=== PATIENT | male | born 1995 ===

== ENCOUNTER 2017-08-04 05:07 | Inpatient (IN) | payer OTHER ==
[2017-08-04] MEDS ORDERED: Sodium Chloride 0.9% 1,000 ML IV ONE ×2 (05:40→19:05)
--- NOTE | 2017-08-04 05:40 | C.PDOC ---
History Of Present Illness 21 year old male presents to the ED with caregiver for evaluation of right upper quadrant pain which began around 4 days ago. Patient also reports subjective fever. Patient denies nausea, vomiting, diarrhea, or association of symptoms with eating. Time Seen by Provider: 08/04/17 05:28 Chief Complaint (Nursing): Abdominal Pain History Per: Patient History/Exam Limitations: no limitations Onset/Duration Of Symptoms: Days (4) Current Symptoms Are (Timing): Still Present Location Of Pain/Discomfort: RUQ Quality Of Discomfort: "Pain" Associated Symptoms: Fever (subjective ). denies: Nausea, Vomiting, Diarrhea Additional History Per: Patient Past Medical History Reviewed: Historical Data, Nursing Documentation, Vital Signs Vital Signs: Last Vital Signs Temp 96 F L 08/04/17 05:15 Pulse 90 08/04/17 05:15 Resp 20 08/04/17 05:15 BP 136/75 08/04/17 05:15 Pulse Ox 100 08/04/17 05:47 - Medical History PMH: No Chronic Diseases Surgical History: No Surg Hx Family History: States: Unknown Family Hx - Social History Hx Alcohol Use: Yes Hx Substance Use: No - Immunization History Hx Tetanus Toxoid Vaccination: No Hx Influenza Vaccination: No Hx Pneumococcal Vaccination: No Review Of Systems Constitutional: Positive for: Fever Gastrointestinal: Positive for: Abdominal Pain (right upper quadrant ). Negative for: Nausea, Vomiting, Diarrhea Physical Exam - Physical Exam Appears: Non-toxic, No Acute Distress Skin: Normal Color, Warm, Dry Head: Atraumatic, Normacephalic Eye(s): bilateral: Normal Inspection Oral Mucosa: Moist Neck: Supple Chest: Symmetrical, No Deformity, No Tenderness Cardiovascular: Rhythm Regular, No Murmur Respiratory: Normal Breath Sounds, No Rales, No Rhonchi, No Wheezing Gastrointestinal/Abdominal: Soft, Tenderness (to RUQ and RLQ on palpation ), No Guarding, No Rebound Extremity: Normal ROM, Capillary Refill (less than 2 seconds ) Neurological/Psych: Oriented x3, Normal Speech, Normal Cognition Gait: Steady ED Course And Treatment - Laboratory Results Result Diagrams: 08/04/17 06:00 O2 Sat by Pulse Oximetry: 100 (on RA) Pulse Ox Interpretation: Normal Progress Note: Labs, CT A/P, CXR, US Abdomen ordered and reviewed. Morphine IVP , Zofran IVP, and IV Fluids administered. Progress - Data Reviewed Data Reviewed: Lab, Diagnostic imaging Disposition - Disposition Disposition Time: 07:00 Condition: STABLE Forms: [facility] (Lao) - Clinical Impression Clinical Impression: Abdominal pain - Scribe Statement The provider has reviewed the documentation as recorded by the Scribe (Liberty Pierre) Provider Attestation: All medical record entries made by the Scribe were at my direction and personally dictated by me. I have reviewed the chart and agree that the record accurately reflects my personal performance of the history, physical exam, medical decision making, and the department course for this patient. I have also personally directed, reviewed, and agree with the discharge instructions and disposition. Physician Patient Turnover Patient Signed Over To: Brian Conway DO Handoff Comments: CYRUS WARD, CT, CICI
[2017-08-04] MEDS ORDERED: Sodium Chloride 0.9% 1,000 ML ONE ×2 (06:02→11:44)
[2017-08-04 06:03] LABS: BASO % 0.3 % (0.0-2.0); EOS # 0.1 K/uL (0.0-0.7); EOS % 0.8 % (0.0-4.0); HEMATOCRIT 46.4 % (35.0-51.0); LYMPH # 2.2 K/uL (1.0-4.3); LYMPH % 14.2 % (20.0-40.0); MEAN CELL VOLUME 87.4 fL (80.0-94.0); MEAN CORPUSCULAR HEMOGLOBIN 30.5 pg (27.0-31.0); MEAN CORPUSCULAR HGB CONC 34.8 g/dL (33.0-37.0); MEAN PLATELET VOLUME 9.1 fL (7.2-11.7); MONO # 0.9 K/uL (0.0-0.8); NRBC % 0.1 % (0.0-2.0); RED CELL DISTRIBUTION WIDTH 13.9 % (11.5-14.5); WHITE BLOOD COUNT 15.4 K/uL (4.8-10.8)
[2017-08-04 06:04] LABS: RBC URINE 1 /hpf (0-3); URINE BILIRUBIN NEGATIVE (NEGATIVE); URINE BLOOD NEGATIVE (NEGATIVE); URINE COLOR Yellow (YELLOW); URINE GLUCOSE (UA) NORMAL (Normal); URINE KETONE TRACE mg/dL (NEGATIVE); URINE LEUKOCYTE ESTERASE NEG Leu/uL (Negative); URINE PROTEIN NEGATIVE (NEGATIVE); WBC URINE < 1 /hpf (0-5)
[2017-08-04 06:40] LABS: CHLORIDE 101 mmol/L (98-107); SODIUM 137 mmol/L (132-148)
[2017-08-04 06:43] LABS: ALB/GLOB RATIO 1.2 (1.0-2.1); ALKALINE PHOSPHATASE 59 U/L (38-126); AST/SGOT 48 U/L (17-59); BILIRUBIN,TOTAL 1.7 mg/dL (0.2-1.3); BLOOD UREA NITROGEN 15 mg/dL (9-20); CARBON DIOXIDE 22 mmol/L (22-30); GFR AFRICAN-AMERICAN > 60; TOTAL PROTEIN 9.3 g/dL (6.3-8.3)
[2017-08-04 06:44] LABS: ALT/SGPT 21 U/L (21-72); CALCIUM 9.6 mg/dl (8.6-10.4); GLUCOSE,RANDOM 87 mg/dL (75-110)
[2017-08-04] MEDS ORDERED: Iodixanol 320 MG/ML 100 ML BOTTLE IV ONE (06:45)
[2017-08-04 07:00] LABS: POTASSIUM 5.4 mmol/L (3.6-5.2)
--- NOTE | 2017-08-04 09:10 | CT ---
PROCEDURE: CT Abdomen and Pelvis with contrast HISTORY: abd pain COMPARISON: None. TECHNIQUE: Contrast dose: 100 mL Visipaque 320. Axial and reformatted coronal and sagittal CT images of the abdomen and pelvis were obtained after IV contrast administration. Radiation dose: Total exam DLP = 305.5 mGy-cm. This CT exam was performed using one or more of the following dose reduction techniques: Automated exposure control, adjustment of the mA and/or kV according to patient size, and/or use of iterative reconstruction technique. FINDINGS: LOWER THORAX: Unremarkable. LIVER: Unremarkable. No gross lesion or ductal dilatation. GALLBLADDER AND BILE DUCTS: Unremarkable. PANCREAS: Unremarkable. No gross lesion or ductal dilatation. SPLEEN: Unremarkable. ADRENALS: Unremarkable. No mass. KIDNEYS AND URETERS: Unremarkable. No hydronephrosis. No solid mass. VASCULATURE: Unremarkable. No aortic aneurysm. BOWEL: Unremarkable. No obstruction. No gross mural thickening. APPENDIX: The appendix is enlarged surrounding with inflammatory changes measures up to 14 millimeter in the transverse diameter. Findings consistent with acute appendicitis. PERITONEUM: Unremarkable. No free fluid. No free air. LYMPH NODES: Unremarkable. No enlarged lymph nodes. BLADDER: Unremarkable. REPRODUCTIVE: Unremarkable. BONES: No acute fracture. OTHER FINDINGS: None. IMPRESSION: Findings consistent with acute appendicitis. No evidence of abscess formation. No evidence of other acute pathology in the abdomen and pelvis.
[2017-08-04] MEDS ORDERED: Piperacillin/Tazobact 3.375 GM in Sodium Chloride 100 ML IVPB STA (09:25)
--- NOTE | 2017-08-04 09:35 | US ---
HISTORY: abd pain COMPARISON: None. TECHNIQUE: Sonographic evaluation of the right upper quadrant of the abdomen. FINDINGS: LIVER: Measures 16.5 cm in length. Normal echogenicity of the liver parenchyma. No mass. No intrahepatic bile duct dilatation. GALLBLADDER: Unremarkable. No gallstones. COMMON BILE DUCT: Measures 3.3 mm. No stones. No dilatation. PANCREAS: Pancreas completely obscured by overlying bowel or stomach gas. . RIGHT KIDNEY: Measures 12.1 cm in length. Normal echogenicity. No calculus, mass, or hydronephrosis. AORTA: No aneurysmal dilatation. IVC: Unremarkable. OTHER FINDINGS: None . IMPRESSION: The pancreas is completely obscured by overlying bowel or stomach gas with remainder of the right upper quadrant examination unremarkable appearing.
[2017-08-04] MEDS ORDERED: Piperacillin/Tazobact 3.375 gm 100 ML IVPB ONE (09:44)
[2017-08-04 10:22] LABS: INR 1.1
--- NOTE | 2017-08-04 11:06 | CP.PCM.HP ---
History of Present Illness - History of Present Illness History of Present Illness: Surgery History and Physical for Dr. Cazares CC: Abdominal pain HPI: 21M presents to the emergency room with 5 day history of right upper quadrant pain that has gotten worse in the last 6 hours. Nothing makes the pain better. However, sudden movements, deep inspiration, coughing, and sitting up. makes the pain worse. The pain radiates form the RUQ to the RLQ. Denies any radiation to the back. The pain has been constant since Monday. The patient states he is "a little bit" hungry. Patient is complaining of subjective fever and chills. Patient denies any nausea, vomiting, or diarrhea. ROS: per HPI PMH: None PSH: Nasal Surgery 6-8 months ago FH: None SH: Smokes 1 pack per week for the past 3 years. Denies alcohol use and illicit drug use Medications: Afrin, Benadryl Allergies: Naproxen (anaphylaxis), Sulfa Present on Admission - Present on Admission Any Indicators Present on Admission: No History of DVT/PE: No History of Uncontrolled Diabetes: No Urinary Catheter: No Decubitus Ulcer Present: No History Surgical Site Infection Following: None Review of Systems - Review of Systems All systems: reviewed and no additional remarkable complaints except (as per HPI ) - Constitutional Constitutional: As Per HPI Past Patient History - Infectious Disease Hx of Infectious Diseases: None - Past Social History Smoking Status: Light Smoker < 10 Cigarettes Daily - PSYCHIATRIC Hx Substance Use: No - SURGICAL HISTORY Hx Surgeries: Yes Other/Comment: nasal surgery - ANESTHESIA Hx Anesthesia: Yes Hx Anesthesia Reactions: No Meds Allergies/Adverse Reactions: Allergies Allergy/AdvReac Type Severity Reaction Status Date / Time naproxen Allergy ANAPHYLAXIS Verified 08/04/17 11:08 Sulfa (Sulfonamide Allergy ANAPHYLAXIS Verified 08/04/17 11:08 Antibiotics) Physical Exam - Constitutional Appears: Well, Non-toxic, No Acute Distress - Head Exam Head Exam: ATRAUMATIC, NORMAL INSPECTION, NORMOCEPHALIC - Eye Exam Eye Exam: EOMI - ENT Exam ENT Exam: Mucous Membranes Moist - Respiratory Exam Respiratory Exam: Clear to Auscultation Bilateral, NORMAL BREATHING PATTERN - Cardiovascular Exam Cardiovascular Exam: REGULAR RHYTHM - GI/Abdominal Exam GI & Abdominal Exam: Tenderness (Tenderness to light palpation in RUQ and RLQ. Positive heel strike. Positive Rebound. ). absent: Distended, Soft - Extremities Exam Extremities exam: Negative for: joint swelling, tenderness - Back Exam Back exam: absent: CVA tenderness (L), CVA tenderness (R) - Neurological Exam Neurological exam: Alert, Oriented x3 - Psychiatric Exam Psychiatric exam: Normal Affect, Normal Mood - Skin Skin Exam: Dry, Intact, Normal Color, Warm Results - Vital Signs Recent Vital Signs: Last Vital Signs Temp 99.7 F H 08/04/17 10:15 Pulse 102 H 08/04/17 10:15 Resp 16 08/04/17 10:15 BP 134/84 08/04/17 10:15 Pulse Ox 99 08/04/17 10:15 - Labs Result Diagrams: 08/04/17 06:00 08/04/17 06:00 Labs: Laboratory Results - last 24 hr 08/04/17 08/04/17 08/04/17 05:59 06:00 06:00 WBC 15.4 H RBC 5.31 Hgb 16.2 Hct 46.4 MCV 87.4 MCH 30.5 MCHC 34.8 RDW 13.9 Plt Count 208 MPV 9.1 Neut % (Auto) 78.7 H Lymph % (Auto) 14.2 L [place] % (Auto) 6.0 Eos % (Auto) 0.8 Baso % (Auto) 0.3 Neut # 12.2 H Lymph # 2.2 [place] # 0.9 H Eos # 0.1 Baso # 0.0 PT INR APTT Sodium 137 Potassium 5.4 H Chloride 101 Carbon Dioxide 22 Anion Gap 19 BUN 15 Creatinine 0.7 L Est GFR ( Amer) > 60 Est GFR (Non-Af Amer) > 60 Random Glucose 87 Calcium 9.6 Total Bilirubin 1.7 H AST 48 ALT 21 Alkaline Phosphatase 59 Total Protein 9.3 H Albumin 5.1 H Globulin 4.2 H Albumin/Globulin Ratio 1.2 Lipase 84 Urine Color Yellow Urine Clarity Clear Urine pH 7.0 Ur Specific [place] 1.016 Urine Protein Negative Urine Glucose (UA) Normal Urine Ketones Trace Urine Blood Negative Urine Nitrate Negative Urine Bilirubin Negative Urine Urobilinogen 2.0 Ur Leukocyte Esterase Neg Urine WBC (Auto) < 1 Urine RBC (Auto) 1 Blood Type 08/04/17 08/04/17 10:07 10:07 WBC RBC Hgb Hct MCV MCH MCHC RDW Plt Count MPV Neut % (Auto) Lymph % (Auto) [place] % (Auto) Eos % (Auto) Baso % (Auto) Neut # Lymph # [place] # Eos # Baso # PT 12.6 H INR 1.1 APTT 28 Sodium Potassium Chloride Carbon Dioxide Anion Gap BUN Creatinine Est GFR ( Amer) Est GFR (Non-Af Amer) Random Glucose Calcium Total Bilirubin AST ALT Alkaline Phosphatase Total Protein Albumin Globulin Albumin/Globulin Ratio Lipase Urine Color Urine Clarity Urine pH Ur Specific [place] Urine Protein Urine Glucose (UA) Urine Ketones Urine Blood Urine Nitrate Urine Bilirubin Urine Urobilinogen Ur Leukocyte Esterase Urine WBC (Auto) Urine RBC (Auto) Blood Type A POSITIVE Assessment & Plan - Assessment and Plan (Free Text) Assessment: 21M w/ acute appendicitis Plan: * OR today * Pain control * NPO * Discussed with Dr. Sage Nieto PGY-1
[2017-08-04] MEDS: Sodium Chloride 0.9% 1,000 ML IV SCH ×2 (11:17→21:40)
[2017-08-04] MEDS: Piperacill/Tazo 3.375gm in Dex 3.375 GM/50 ML BAG IVPB SCH ×2 (11:18→17:56)
[2017-08-04] MEDS ORDERED: HYDROmorphone 0.5 mg/0.5 ml ISec IVP PRN (17:36)
[2017-08-04] MEDS ORDERED: Lactated Ringer's 1,000 ML IV ONE (17:42)
[2017-08-04] MEDS ORDERED: Neostigmine Methylsulfate 3mg/3ml Syringe IV ONE ×2 (18:35→18:36)
--- NOTE | 2017-08-04 18:59 | PCM.SURG1 ---
Surgeon's Initial Post Op Note - Surgeon's Notes Surgeon: Sage Religion Professor: Ebenezer PGY2, Emilia PGY1 Type of Anesthesia: General Endo Pre-Operative Diagnosis: Acute Appendicitis Operative Findings: Inflamed Appendix Post-Operative Diagnosis: Acute Appendicitis Operation Performed: Laparoscopic Appendectomy Specimen/Specimens Removed: Appendix Estimated Blood Loss: EBL {In ML}: 5 Post-Op Condition: Good Date of Surgery/Procedure: 08/04/17 Time of Surgery/Procedure: 18:59
[2017-08-04] MEDS: Oxycodone/Acetaminophen 5/325 mg Tab PO PRN (22:26)
[2017-08-05] MEDS: Piperacill/Tazo 3.375gm in Dex 3.375 GM/50 ML BAG IVPB SCH ×2 (00:08→05:46)
[2017-08-05 00:26] VITALS: RESP 20
[2017-08-05 07:13] LABS: BASO % 0.5 % (0.0-2.0); EOS % 0.5 % (0.0-4.0); HEMATOCRIT 41.4 % (35.0-51.0); LYMPH # 1.6 K/uL (1.0-4.3); LYMPH % 21.9 % (20.0-40.0); MEAN CELL VOLUME 88.4 fL (80.0-94.0); MEAN CORPUSCULAR HEMOGLOBIN 30.8 pg (27.0-31.0); MEAN CORPUSCULAR HGB CONC 34.8 g/dL (33.0-37.0); MONO # 0.7 K/uL (0.0-0.8); MONO % 9.2 % (0.0-10.0); RED CELL DISTRIBUTION WIDTH 14.1 % (11.5-14.5)
[2017-08-05 07:18] LABS: WHITE BLOOD COUNT 7.5 K/uL (4.8-10.8)
[2017-08-05 08:00] LABS: CHLORIDE 101 mmol/L (98-107); POTASSIUM 3.9 mmol/L (3.6-5.2); SODIUM 134 mmol/L (132-148)
[2017-08-05 08:03] LABS: BLOOD UREA NITROGEN 7 mg/dL (9-20); CARBON DIOXIDE 24 mmol/L (22-30); GFR AFRICAN-AMERICAN > 60
[2017-08-05 08:04] LABS: CALCIUM 8.9 mg/dl (8.6-10.4); GLUCOSE,RANDOM 98 mg/dL (75-110)
[2017-08-05] MEDS: Sodium Chloride 0.9% 1,000 ML IV SCH (08:56)
[2017-08-05] MEDS: Oxycodone/Acetaminophen 5/325 mg Tab PO PRN (09:08)
--- NOTE | 2017-08-05 11:59 | CP.PCM.DIS ---
Provider - Provider Date of Admission: 08/04/17 10:52 Attending physician: Maribel Cazares MD Time Spent in preparation of Discharge (in minutes): 30 Diagnosis - Discharge Diagnosis (1) Appendicitis Status: Acute Hospital Course - Lab Results Lab Results: Most Recent Lab Values WBC 7.5 K/uL (4.8-10.8) D 08/05/17 07:04 RBC 4.69 Mil/uL (4.40-5.90) 08/05/17 07:04 Hgb 14.4 g/dL (12.0-18.0) 08/05/17 07:04 Hct 41.4 % (35.0-51.0) 08/05/17 07:04 MCV 88.4 fL (80.0-94.0) 08/05/17 07:04 MCH 30.8 pg (27.0-31.0) 08/05/17 07:04 MCHC 34.8 g/dL (33.0-37.0) 08/05/17 07:04 RDW 14.1 % (11.5-14.5) 08/05/17 07:04 Plt Count 219 K/uL (130-400) 08/05/17 07:04 MPV 9.0 fL (7.2-11.7) 08/05/17 07:04 Neut % (Auto) 67.9 % (50.0-75.0) 08/05/17 07:04 Lymph % (Auto) 21.9 % (20.0-40.0) 08/05/17 07:04 [place] % (Auto) 9.2 % (0.0-10.0) 08/05/17 07:04 Eos % (Auto) 0.5 % (0.0-4.0) 08/05/17 07:04 Baso % (Auto) 0.5 % (0.0-2.0) 08/05/17 07:04 Neut # 5.1 K/uL (1.8-7.0) 08/05/17 07:04 Lymph # 1.6 K/uL (1.0-4.3) 08/05/17 07:04 [place] # 0.7 K/uL (0.0-0.8) 08/05/17 07:04 Eos # 0.0 K/uL (0.0-0.7) 08/05/17 07:04 Baso # 0.0 K/uL (0.0-0.2) 08/05/17 07:04 PT 12.6 SECONDS (9.7-12.2) H 08/04/17 10:07 INR 1.1 08/04/17 10:07 APTT 28 SECONDS (21-34) 08/04/17 10:07 Sodium 134 mmol/L (132-148) 08/05/17 07:04 Potassium 3.9 mmol/L (3.6-5.2) 08/05/17 07:04 Chloride 101 mmol/L (98-107) 08/05/17 07:04 Carbon Dioxide 24 mmol/L (22-30) 08/05/17 07:04 Anion Gap 13 (10-20) 08/05/17 07:04 BUN 7 mg/dL (9-20) L 08/05/17 07:04 Creatinine 0.7 mg/dL (0.8-1.5) L 08/05/17 07:04 Est GFR ( Amer) > 60 08/05/17 07:04 Est GFR (Non-Af Amer) > 60 08/05/17 07:04 Random Glucose 98 mg/dL (75-110) 08/05/17 07:04 Calcium 8.9 mg/dl (8.6-10.4) 08/05/17 07:04 Total Bilirubin 1.7 mg/dL (0.2-1.3) H 08/04/17 06:00 AST 48 U/L (17-59) 08/04/17 06:00 ALT 21 U/L (21-72) 08/04/17 06:00 Alkaline Phosphatase 59 U/L (38-126) 08/04/17 06:00 Total Protein 9.3 g/dL (6.3-8.3) H 08/04/17 06:00 Albumin 5.1 g/dL (3.5-5.0) H 08/04/17 06:00 Globulin 4.2 gm/dL (2.2-3.9) H 08/04/17 06:00 Albumin/Globulin Ratio 1.2 (1.0-2.1) 08/04/17 06:00 Lipase 84 U/L (23-300) 08/04/17 06:00 Urine Color Yellow (YELLOW) 08/04/17 05:59 Urine Clarity Clear (Clear) 08/04/17 05:59 Urine pH 7.0 (5.0-8.0) 08/04/17 05:59 Ur Specific [place] 1.016 (1.003-1.030) 08/04/17 05:59 Urine Protein Negative mg/dL (NEGATIVE) 08/04/17 05:59 Urine Glucose (UA) Normal mg/dL (Normal) 08/04/17 05:59 Urine Ketones Trace mg/dL (NEGATIVE) 08/04/17 05:59 Urine Blood Negative (NEGATIVE) 08/04/17 05:59 Urine Nitrate Negative (NEGATIVE) 08/04/17 05:59 Urine Bilirubin Negative (NEGATIVE) 08/04/17 05:59 Urine Urobilinogen 2.0 mg/dL (0.2-1.0) 08/04/17 05:59 Ur Leukocyte Esterase Neg Efren/uL (Negative) 08/04/17 05:59 Urine WBC (Auto) < 1 /hpf (0-5) 08/04/17 05:59 Urine RBC (Auto) 1 /hpf (0-3) 08/04/17 05:59 Blood Type A POSITIVE 08/04/17 10:07 Antibody Screen Negative 08/04/17 10:07 - Hospital Course Hospital Course: 21M w. no PMH presented to ED w. abd pain. Was found to have acute appendicitis , underwent laparoscopic appendectomy. Post-operatively pt did well. He is tolerating diet, no N/V. Pain controlled. He is ambulating, and voiding w. out issue. Pt is clear for D/C from surgical standpoint. Discharge Exam - Head Exam Head Exam: ATRAUMATIC, NORMAL INSPECTION, NORMOCEPHALIC - Eye Exam Eye Exam: EOMI - ENT Exam ENT Exam: Mucous Membranes Moist, Normal External Ear Exam - Neck Exam Neck exam: Full Rom - Respiratory Exam Respiratory Exam: NORMAL BREATHING PATTERN. absent: Accessory Muscle Use, Respiratory Distress - GI/Abdominal Exam GI & Abdominal Exam: Soft, Tenderness (jacques-incisional ). absent: Distended, Firm, Guarding, Rebound, Rigid - Neurological Exam Neurological exam: Alert, Oriented x3 - Psychiatric Exam Psychiatric exam: Normal Affect, Normal Mood - Skin Skin Exam: Dry, Warm Discharge Plan - Follow Up Plan Condition: STABLE Disposition: HOME/ ROUTINE Patient education suggested?: Yes Instructions: Laparoscopic Appendectomy (DC), Care For Your Stitches (DC) Additional Instructions: Activity as tolerated. No heavy lifting >20lbs for 4 weeks. Take pain meds as instructed. Follow up segundo Cazares in 1-2 weeks. Return to ED if symptoms worsen. Referrals: Maribel Cazares MD [Staff Provider] -
[2017-08-05] MEDS: Pneumococcal 23-Valent Vaccine IM ONE ×2 (13:23→13:33)
[2017-08-05] MEDS ORDERED: Influenza Vaccine 60 mcg/0.5 mL SYR (4YR UP) IM ONE (13:30)
[2017-08-05 15:49] VITALS: BP 102/62; PULSE 59; TEMP 98.4; O2SAT 99
--- NOTE | 2017-08-05 20:13 | OP ---
PROCEDURE DATE: 08/04/2017 PREOPERATIVE DIAGNOSIS: Acute appendicitis. POSTOPERATIVE DIAGNOSIS: Acute appendicitis. PROCEDURE: Laparoscopic appendectomy. SURGEON: Maribel Cazares MD. E LEARNING SPECIALIST: Dr. Taylor. TYPE OF ANESTHESIA: General. DESCRIPTION OF PROCEDURE: With the patient in the supine position under adequate general anesthesia, the abdomen was prepped and draped in the usual sterile manner. Veress needle puncture was performed at the umbilicus with insufflation to 15 cm of water pressure of CO2, and under direct vision 5 mm and 12 mm trocars were inserted in the left lower quadrant. The cecum was identified and was slightly high riding at the level of the pelvic brim. The appendix itself was noted to pass along the right gutter up cephalad to the lower edge of the liver. The base of the appendix was well preserved; however, the distal portion of the appendix was noted to be acutely inflamed. The appendix was gently grasped and serially delivered downward into view. The base of the appendix was dissected and divided using an Endo MAGDALENA stapler and the mesoappendix as well as some retroperitoneal attachments were then divided using the LigaSure. The operative site was examined for hemostasis and the appendix was placed in a specimen retrieval bag and removed via the 12 mm port site. The pneumoperitoneum was released and the trocars were removed. The umbilical and 12 mm port sites were closed with [id number] fascial sutures of 0-Vicryl. All incisions were closed with 4-0 Monocryl subcuticular sutures and Steri-Strips. Dry sterile dressings were applied. The patient tolerated the procedure well and transferred to recovery room in stable condition. Estimated blood loss for the procedure was 10 mL. Maribel Cazares MD
[2017-08-07] MEDS ORDERED: Influenza Vaccine 60 mcg/0.5 mL SYR (4YR UP) IM ONE (10:00)
[2017-08-07] MEDS ORDERED: Pneumococcal 23-Valent Vaccine IM ONE (10:00)
== END 2017-08-05 15:30 | disposition home or self-care (01) | DRG 883 ==
LOC: C.ER 05:07 → C.9E 10:52 → C.3T 11:18
PROVIDERS: ADMIT Specialist; ATTEND Specialist
PROC: 0DTJ4ZZ Resection of Appendix, Percutaneous Endoscopic Approach (ICD-10-PCS; principal; 2017-08-04 17:42)
DX: K35.80 Unspecified acute appendicitis (principal); F17.210 Nicotine dependence, cigarettes, uncomplicated

== ENCOUNTER 2017-10-22 22:30 | Emergency (ER) | payer OTHER ==
[2017-10-22 22:42] VITALS: BP 131/84; PULSE 93; RESP 20; TEMP 97.6; O2SAT 100
--- NOTE | 2017-10-22 23:30 | C.PDOC ---
History Of Present Illness Myron Hopkins is a 21 year old male, with no past medical history, who presents to the emergency department complaining of nasal congestion. Patient [place], but 'did not finish the treatment'. Patient states he is supposed to take medications ( names unknown) but cannot fill them because [place] from [place]. He denies any other medical complaints. PMD: None provided. Time Seen by Provider: 10/22/17 22:52 Chief Complaint (Nursing): ENT Problem History Per: Patient History/Exam Limitations: None Onset/Duration Of Symptoms: Days (x8 months) Current Symptoms Are (Timing): Still Present Past Medical History Reviewed: Historical Data, Nursing Documentation, Vital Signs Vital Signs: Last Vital Signs Temp 97.6 F 10/22/17 22:39 Pulse 93 H 10/22/17 22:39 Resp 20 10/22/17 23:39 BP 131/84 10/22/17 22:39 Pulse Ox 100 10/25/17 12:20 - Medical History PMH: No Chronic Diseases Surgical History: Appendectomy - [facility] Procedures RESECTION OF APPENDIX, PERCUTANEOUS ENDOSCOPIC APPROACH (08/04/17) Family History: States: Unknown Family Hx - Social History Hx Tobacco Use: Yes (light smoker <10 cigarettes daily) Hx Alcohol Use: No Hx Substance Use: No - Immunization History Hx Tetanus Toxoid Vaccination: Yes Hx Influenza Vaccination: Yes Hx Pneumococcal Vaccination: Yes Review Of Systems Constitutional: Negative for: Fever, Chills ENT: Positive for: Nose Congestion. Negative for: Ear Pain, Throat Pain Physical Exam - Physical Exam Appears: Non-toxic, No Acute Distress Skin: Normal Color, Warm, Dry Head: Atraumatic Eye(s): bilateral: Normal Inspection Ear(s): Bilateral: Normal Nose: Other (appears congested) Tongue: Normal Appearing Lips: Normal Appearing Throat: No Erythema, No Exudate Neck: Normal ROM, Supple Neurological/Psych: Oriented x3, Normal Speech, Normal Cognition ED Course And Treatment O2 Sat by Pulse Oximetry: 100 (RA) Pulse Ox Interpretation: Normal Medical Decision Making Medical Decision Making: Initial Impression: rhinitis Initial Plan: 23:27 --Upon provider reevaluation patient is feeling better, is medically stable, and requires no further treatment in the ED at this time. Patient will be discharged home with Rx for Flonase 1 spr LASHAUN. Counseling was provided and all questions were answered regarding diagnosis and need for follow up with outpatient clinic. There is agreement to discharge plan. Return if symptoms persist or worsen. Disposition Counseled Patient/Family Regarding: Diagnosis, Need For Followup - Disposition Referrals: [facility] at [facility] [Outside] Disposition: HOME/ ROUTINE Disposition Time: 23:27 Condition: STABLE Additional Instructions: USe medication as directed. Follow up in medical clinic for a referral to ENT. Prescriptions: Fluticasone Propionate [Flonase] 1 spr LASHAUN BID #1 bottle Instructions: Allergic Rhinitis (ED) Forms: [employer] (Faroese) Print Language: [place] - Clinical Impression Clinical Impression: Rhinitis - Scribe Statement Bahman Fuentes All medical record entries made by the Scribe were at my direction and personally dictated by me. I have reviewed the chart and agree that the record accurately reflects my personal performance of the history, physical exam, medical decision making, and the department course for this patient. I have also personally directed, reviewed, and agree with the discharge instructions and disposition.
== END 2017-10-23 00:09 | disposition home or self-care (01) ==
LOC: C.ER 22:30
DX: J31.0 Chronic rhinitis (principal)

== ENCOUNTER 2017-12-07 15:30 | Emergency (ER) | payer OTHER ==
[2017-12-07 15:48] VITALS: RESP 16; O2SAT 100
[2017-12-07] MEDS ORDERED: Sodium Chloride 0.9% 1,000 ML IV ONE (16:30)
[2017-12-07] MEDS ORDERED: Sodium Chloride 0.9% 1,000 ML ONE (18:01)
[2017-12-07 18:18] LABS: BASO % 0.9 % (0.0-2.0); EOS % 0.9 % (0.0-4.0); HEMOGLOBIN 15.7 g/dL (12.0-18.0); LYMPH # 1.7 K/uL (1.0-4.3); LYMPH % 33.2 % (20.0-40.0); MEAN CELL VOLUME 88.4 fL (80.0-94.0); MEAN CORPUSCULAR HEMOGLOBIN 30.9 pg (27.0-31.0); MEAN CORPUSCULAR HGB CONC 34.9 g/dL (33.0-37.0); MEAN PLATELET VOLUME 8.7 fL (7.2-11.7); MONO # 0.3 K/uL (0.0-0.8); MONO % 6.3 % (0.0-10.0); NEUT # 2.9 K/uL (1.8-7.0); NEUT % 58.7 % (50.0-75.0); NRBC % 0.1 % (0.0-2.0); RBC 5.08 Mil/uL (4.40-5.90); RED CELL DISTRIBUTION WIDTH 13.5 % (11.5-14.5)
[2017-12-07 18:21] LABS: SQUAMOUS EPITHIAL < 1 /hpf (0-5); URINE BILIRUBIN NEGATIVE (NEGATIVE); URINE BLOOD NEGATIVE (NEGATIVE); URINE CLARITY Clear (Clear); URINE COLOR Straw (YELLOW); URINE GLUCOSE (UA) NORMAL (Normal); URINE LEUKOCYTE ESTERASE NEG Leu/uL (Negative); URINE NITRATE NEGATIVE (NEGATIVE); URINE PROTEIN NEGATIVE (NEGATIVE); URINE UROBILINOGEN NORMAL mg/dL (0.2-1.0)
[2017-12-07 18:38] LABS: CALCIUM 9.7 mg/dl (8.6-10.4); GFR AFRICAN-AMERICAN > 60; GFR NON-AFRICAN AMERICAN > 60; LIPASE 76 U/L (23-300)
[2017-12-07 18:41] LABS: ALB/GLOB RATIO 1.3 (1.0-2.1); ALBUMIN 4.5 g/dL (3.5-5.0); ALT/SGPT 17 U/L (21-72); AST/SGOT 31 U/L (17-59); BLOOD UREA NITROGEN 11 mg/dL (9-20)
--- NOTE | 2017-12-07 20:24 | C.PDOC ---
Time Seen by Provider: 12/07/17 16:23 Chief Complaint (Nursing): Abdominal Pain History Per: Patient, Family Onset/Duration Of Symptoms: Days (few), Intermittent Episodes Current Symptoms Are (Timing): Still Present Severity: Moderate Location Of Pain/Discomfort: RUQ, LUQ Associated Symptoms: Back Pain Alleviating Factors: None Additional History Per: Prior Records Past Medical History Reviewed: Historical Data, Nursing Documentation, Vital Signs Vital Signs: Last Vital Signs Temp 98.1 F 12/07/17 15:46 Pulse 66 12/07/17 15:46 Resp 16 12/07/17 15:46 BP 131/80 12/07/17 15:46 Pulse Ox 100 12/07/17 15:46 - Medical History PMH: No Chronic Diseases Surgical History: Appendectomy - [facility] Procedures RESECTION OF APPENDIX, PERCUTANEOUS ENDOSCOPIC APPROACH (08/04/17) Family History: States: Unknown Family Hx - Social History Hx Tobacco Use: Yes (light smoker <10 cigarettes daily) Hx Alcohol Use: No Hx Substance Use: No - Immunization History Hx Tetanus Toxoid Vaccination: Yes Hx Influenza Vaccination: Yes Hx Pneumococcal Vaccination: Yes Review Of Systems Except As Marked, All Systems Reviewed And Found Negative. Constitutional: Negative for: Fever, Weakness Cardiovascular: Negative for: Chest Pain Respiratory: Negative for: Shortness of Breath, Hemoptysis Gastrointestinal: Positive for: Abdominal Pain. Negative for: Vomiting, Diarrhea Genitourinary: Negative for: Dysuria Musculoskeletal: Positive for: Back Pain. Negative for: Neck Pain, Leg Pain Skin: Negative for: Rash Neurological: Negative for: Weakness, Numbness, Seizures, Altered Mental Status Physical Exam - Physical Exam Appears: Non-toxic, No Acute Distress Skin: Normal Color, Warm, Dry, No Rash Head: Atraumatic, Normacephalic Eye(s): bilateral: Normal Inspection, PERRL, EOMI Neck: Normal ROM, Supple Cardiovascular: Rhythm Regular Respiratory: Normal Breath Sounds, No Accessory Muscle Use Gastrointestinal/Abdominal: Soft, Tenderness (nonspecific), No Distention, No Guarding, No Rebound Back: No Vertebral Tenderness, Paraspinal Tenderness Extremity: Normal ROM, No Pedal Edema, No Calf Tenderness Neurological/Psych: Oriented x3, Normal Motor, Normal Sensation ED Course And Treatment - Laboratory Results Result Diagrams: 12/07/17 18:11 12/07/17 18:11 Lab Interpretation: No Acute Changes O2 Sat by Pulse Oximetry: 100 Pulse Ox Interpretation: Normal Progress Note: Pain resolved Reassessment Condition: Improved Disposition Counseled Patient/Family Regarding: Studies Performed, Diagnosis, Need For Followup, Rx Given - Disposition Referrals: [facility] [Outside] Disposition: HOME/ ROUTINE Disposition Time: 20:26 Condition: IMPROVED Additional Instructions: Follow up in the clinic for further evaluation and treatment. Return to the ER if you develop fever, vomiting, worsening of symptoms or if you have any other concerns. Prescriptions: Acetaminophen [Tylenol Extra Strength] 2 tab PO Q6 PRN #30 tablet PRN Reason: Pain, Moderate (4-7) Instructions: Muscle and Bone Pain (DC) Print Language: CITIZ[place] - Clinical Impression Clinical Impression: Musculoskeletal pain
[2017-12-07 20:50] VITALS: BP 110/66; PULSE 57; TEMP 98.2
== END 2017-12-07 20:53 | disposition home or self-care (01) ==
LOC: C.ER 15:30
DX: M79.1 Myalgia (principal); F17.210 Nicotine dependence, cigarettes, uncomplicated
CPT/HCPCS: 80053; 81001; 83690; 85025; 87086; 99284; J7040

== ENCOUNTER 2018-11-04 18:42 | Emergency (ER) | payer SELFPAY, OTHER | END 2018-11-04 20:00 | disposition home or self-care (01) | LOC: C.ER 18:42 ==

== ENCOUNTER 2018-12-21 16:32 | Emergency (ER) | payer SELFPAY | END 2018-12-21 19:44 | disposition home or self-care (01) | LOC: C.ER 16:32 ==